=== PATIENT | male | born 1940 | race Caucasian/White ===

== ENCOUNTER 2016-09-29 13:24 | Emergency (ER) | payer OTHER ==
[~2016-09-29] VITALS: Ht 177.8 cm; Wt 67.0 kg
[~2016-09-29 13:24] MED LIST: ATORVASTATIN CA10 MG PO; AZATHIOPRINE50 MG PO; BACTERICIN30 GM TP; BACTRIM,SEPT1 TABLET PO; Bactrim,Septra DS 80 PO; CALCITRIOL0.25 MCG PO; CALCITRIOL0.5 MCG PO; CARTIA XT240 MG PO; CARVEDILOL12.5 MG PO; CEFDINIR300 MG PO; CEFTIN500 MG PO; CENTRUM SILVER1 EAC3 PO; CLEOCIN300 MG PO; CYANOCOBALAM1000 MCG PO; CYCLOPHOSPHAMID50 MG PO; Cardizem CD,Cartia X PO; Cardizem CD,LA,Cartia,Tiazac,Dilacor,Taztia PO; Ceftin PO; Coreg PO; DILTIAZEM 24HR240 MG PO; DOXAZOSIN MESYLA1 MG PO; EFUDEX 5% CREAM25 GM TP; ELIQUIS2.5 MG PO; FEOSOL325 MG PO; FERROUS SULFAT325 MG PO; FLOMAX0.4 MG PO; FUROSEMIDE40 MG PO; GLIPIZIDE5 MG PO; GLUCOPHAGE500 MG PO; GLUCOTROL5 MG PO; Glucotrol PO; HUMALOG100 UNIT/2 SC; IMURAN50 MG PO; IRON SUPPLEMEN325 MG PO; IRON325 M1 PO; KEFLEX500 MG PO; LANTUS 10100 UNITS/ SC; LANTUS 3 M100 UNITS1 SC; LASIX40 MG PO; LEVAQUIN750 MG PO; LOVENOX30 MG/0.3 SC; MULTIVITAMIN1 EAC2 PO; NOVOLOG 10100 UNITS/ SC; NOVOLOG PE100 UNITS/ SC; Norvasc PO; NovoLOG, HumaLOG SC; OMEPRAZOLE40 M1 PO; OS-CAL 500+D T1 EAC1 PO; OS-CAL ULTRA T1 EACH PO; OSCAL, OYSTER500 MG PO; OXYCODONE HCL5 MG PO; Oscal 500 w/Vitamin PO; PANTOPRAZOLE SO40 MG PO; PREDNISONE20 MG PO; PREDNISONE5 MG PO; PROCRIT10000 UNI1 SC; PROCRIT20000 UNI2 SC; PROTONIX40 MG PO; Protonix PO; TAMSULOSIN HCL0.4 MG PO; TRAMADOL HCL50 MG PO; TYLENOL REGULA325 MG PO; Theragran PO; VALSARTAN80 MG PO; VITAMIN B-122000 MC1 PO; VITAMIN B-122000 MCG PO; VITAMIN B12-FO1 EACH PO; ZOFRAN4 MG PO; predniSONE PO
[2016-09-29 14:20] LABS: HEMATOCRIT 31.6 % (38.0-50.0); MCH 31.2 PG (29.0-34.0); MCHC 32.3 G/DL (30.0-36.0); MCV 96.6 FL (86-99); MEAN PLAT.VOLUME 9.7 uM^3 (9.0-12.4); PLATELET COUNT 193 K/uL (156-360); RBC DIS.WIDTH-CV 13.5 % (11.8-14.6); RBC DIS.WIDTH-SD 48.4 % (39-53); RED BLOOD COUNT 3.27 M/uL (4.00-5.50); WHITE BLOOD COUNT 8.3 K/uL (4.1-10.2)
[2016-09-29 14:31] LABS: CHLORIDE 105 mEq/L (99-109); POTASSIUM 4.8 mEq/L (3.7-5.4); SODIUM 143 mEq/L (136-147)
[2016-09-29 14:33] LABS: GLUCOSE 181 mg/dL (70-99)
[2016-09-29 14:34] LABS: ANION GAP 11 MEQ/L (2-14)
[2016-09-29 14:35] LABS: TOTAL BILIRUBIN 0.5 mg/dL (0.0-1.0)
[2016-09-29 14:36] LABS: ALKALINE PHOSPHATASE 58 IU/L (3-129)
[2016-09-29 14:37] LABS: GFR ESTIMATE (CALCULATED) 21 mL/min/
[2016-09-29 14:38] LABS: UREA NITROGEN (BUN) 45 mg/dL (9-23)
[2016-09-29 14:40] LABS: LIPASE 15 U/L (1.0-51.0)
[2016-09-29 14:53] LABS: ADD MIUA? YES; BILIRUBIN NEGATIVE; BLOOD NEGATIVE; COLOR YELLOW ((YELLOW)); GLUCOSE (STRIP) NEGATIVE; KETONES NEGATIVE; LEUKOCYTES TRACE; NITRITE NEGATIVE; PROTEIN (STRIP) 30; SPECIFIC GRAVITY 1.011 (1.000-1.030); UROBILINOGEN 0.2 MG/DL (0.2-1.0)
[2016-09-29 14:57] LABS: BACTERIA NONE SEEN /HPF; EPITHELIAL CELLS RARE /HPF; HYALINE CASTS 0-5 /LPF; MUCUS NONE SEEN /LPF; RED BLOOD CELLS 0-5 /HPF (0-5); UCUL ADDED? NO; WHITE BLOOD CELLS 0-5 /HPF (0-5); WHITE BLOOD CELLS CLUMP RARE /HPF (0-5)
[2016-09-29 15:04] LABS: TROP-I INTERPRETATION NEGATIVE; TROPONIN-I 0.01 ng/mL (0.0-0.30)
[2016-09-29] MEDS ORDERED: ZOFRAN8 MG PO (16:53)
[2016-09-29 17:40] VITALS: BP 152/82
== END 2016-09-29 17:56 | disposition home or self-care (01) ==
LOC: EME 13:24
DX: R11.2 Nausea with vomiting, unspecified (principal); R19.7 Diarrhea, unspecified; M31.31 Wegener's granulomatosis with renal involvement; E11.9 Type 2 diabetes mellitus without complications; E86.0 Dehydration; N28.9 Disorder of kidney and ureter, unspecified; I10 Essential (primary) hypertension; Z79.4 Long term (current) use of insulin; Z79.52 Long term (current) use of systemic steroids; Z79.01 Long term (current) use of anticoagulants; Z87.891 Personal history of nicotine dependence
CPT/HCPCS: 71020; 80053; 81003; 83690; 84484; 85027; 99281; 99285; J7030

== ENCOUNTER 2017-03-11 12:55 | Emergency (ER) | payer OTHER ==
[~2017-03-11] VITALS: Ht 177.8 cm; Wt 67.1 kg
[~2017-03-11 12:55] MED LIST changes: +ZOFRAN8 MG PO
[2017-03-11 13:38] LABS: HEMATOCRIT 31.9 % (38.0-50.0); MCH 31.3 PG (29.0-34.0); MCV 97.9 FL (86-99); MEAN PLAT.VOLUME 9.4 uM^3 (9.0-12.4); PLATELET COUNT 173 K/uL (156-360); RBC DIS.WIDTH-CV 13.3 % (11.8-14.6); RBC DIS.WIDTH-SD 47.6 % (39-53); RED BLOOD COUNT 3.26 M/uL (4.00-5.50); WHITE BLOOD COUNT 11.1 K/uL (4.1-10.2)
[2017-03-11 13:46] LABS: CHLORIDE 111 mEq/L (99-109); POTASSIUM 4.8 mEq/L (3.7-5.4); SODIUM 144 mEq/L (136-147)
[2017-03-11 13:48] LABS: GLUCOSE 146 mg/dL (70-99)
[2017-03-11 13:50] LABS: ANION GAP 11 MEQ/L (2-14)
[2017-03-11 13:52] LABS: GFR ESTIMATE (CALCULATED) 29 mL/min/
[2017-03-11 13:53] LABS: UREA NITROGEN (BUN) 34 mg/dL (9-23)
[2017-03-11 13:57] LABS: TROP-I INTERPRETATION NEGATIVE; TROPONIN-I < 0.01 ng/mL (0.0-0.30)
[2017-03-11 16:42] LABS: ADD MIUA? NO; BILIRUBIN NEGATIVE; BLOOD NEGATIVE; COLOR YELLOW ((YELLOW)); GLUCOSE (STRIP) NEGATIVE; KETONES NEGATIVE; LEUKOCYTES NEGATIVE; NITRITE NEGATIVE; PROTEIN (STRIP) NEGATIVE; SPECIFIC GRAVITY 1.008 (1.000-1.030); UCUL ADDED? NO; UROBILINOGEN 0.2 MG/DL (0.2-1.0)
[2017-03-11] MEDS ORDERED: LEVAQUIN750 MG PO (18:34)
[2017-03-11 18:47] VITALS: BP 138/79
== END 2017-03-11 19:00 | disposition home or self-care (01) ==
LOC: EME 12:55
PROVIDERS: Emergency Medicine
DX: J18.9 Pneumonia, unspecified organism (principal); R07.9 Chest pain, unspecified; M31.30 Wegener's granulomatosis without renal involvement; I12.9 Hypertensive chronic kidney disease with stage 1 through stage 4 chronic kidney disease, or unspecified chronic kidney disease; E11.22 Type 2 diabetes mellitus with diabetic chronic kidney disease; N18.9 Chronic kidney disease, unspecified; Z79.4 Long term (current) use of insulin; J45.909 Unspecified asthma, uncomplicated; K21.9 Gastro-esophageal reflux disease without esophagitis; F41.9 Anxiety disorder, unspecified; Z86.73 Personal history of transient ischemic attack (TIA), and cerebral infarction without residual deficits; N40.0 Benign prostatic hyperplasia without lower urinary tract symptoms; Z85.9 Personal history of malignant neoplasm, unspecified; Z88.8 Allergy status to other drugs, medicaments and biological substances; Z87.891 Personal history of nicotine dependence
CPT/HCPCS: 71020; 80048; 81003; 84484; 85027; 93005; 99281; 99285; J7030

== ENCOUNTER 2017-09-03 07:08 | Inpatient (IN) | payer OTHER ==
[~2017-09-03] VITALS: Ht 177.8 cm; Wt 67.0 kg
[2017-09-03 08:13] LABS: BASOPHIL (%) 0.2 % (0-1); EOSINOPHIL (%) 0.6 % (0-5); EOSINOPHIL COUNT 0.1 K/uL (0-0.3); HEMATOCRIT 32.4 % (38.0-50.0); HEMOGLOBIN 10.7 G/DL (12.5-16.6); IMMATURE GRANULOCYTE (%) 0.3 % (0.0-0.7); LYMPHOCYTE (%) 5.4 % (15-42); LYMPHOCYTE COUNT 0.5 K/uL (1.0-2.8); MCH 31.7 PG (29.0-34.0); MCV 95.9 FL (86-99); MONOCYTE COUNT 0.3 K/uL (0-0.8); NEUTROPHIL (%) 90.5 % (45-76); NEUTROPHIL COUNT 8.8 K/uL (1.8-6.4); PLATELET COUNT 178 K/uL (156-360); RBC DIS.WIDTH-CV 13.4 % (11.8-14.6); RBC DIS.WIDTH-SD 47.2 % (39-53); RED BLOOD COUNT 3.38 M/uL (4.00-5.50); WHITE BLOOD COUNT 9.7 K/uL (4.1-10.2)
[2017-09-03 08:58] LABS: ALBUMIN 3.2 G/DL (3.2-4.8); ALKALINE PHOSPHATASE 54 IU/L (3-129); ALT (GPT) 25 IU/L (3-49); AST (GOT) 22 IU/L (2-34); CHLORIDE 111 MEQ/L (99-109); CREATININE 2.6 MG/DL (0.6-1.3); GFR ESTIMATE (CALCULATED) 25 mL/min/ (58.99-99999); GLUCOSE 139 mg/dL (70-99); POTASSIUM 4.4 MEQ/L (3.7-5.4); SODIUM 143 MEQ/L (136-147); TOTAL BILIRUBIN 0.5 MG/DL (0.0-1.0); TOTAL PROTEIN 5.3 G/DL (6.4-8.3); UREA NITROGEN (BUN) 60 mg/dL (9-23)
[2017-09-03 11:34] LABS: APPEARANCE SL.HAZY ((CLEAR)); BILIRUBIN NEGATIVE; BLOOD NEGATIVE; COLOR YELLOW ((YELLOW)); GLUCOSE (STRIP) NEGATIVE; KETONES NEGATIVE; LEUKOCYTES NEGATIVE; NITRITE NEGATIVE; PROTEIN (STRIP) NEGATIVE; SPECIFIC GRAVITY 1.011 (1.000-1.030); UROBILINOGEN 0.2 MG/DL (0.2-1.0)
[2017-09-03 11:38] LABS: BACTERIA NONE SEEN /HPF; EPITHELIAL CELLS NONE SEEN /HPF; MUCUS TRACE /LPF; RED BLOOD CELLS 0-5 /HPF (0-5); WHITE BLOOD CELLS 0-5 /HPF (0-5)
[2017-09-03] MEDS ORDERED: CARDIZEM CD360 MG PO (11:51)
[2017-09-03] MEDS ORDERED: ANORO ELLIPTA1 EACH IH (11:54)
[2017-09-03] MEDS ORDERED: TRESIBA FL100 UNIT/1 SC (11:54)
[2017-09-03] MEDS ORDERED: PROAIR HFA8.5 GM IH (11:55)
[2017-09-03] MEDS ORDERED: VALSARTAN80 MG PO (11:57)
[2017-09-03 12:30] VITALS: BP 107/53
[2017-09-03 16:02] VITALS: BP 122/56
[2017-09-03 19:30] VITALS: BP 106/52
[2017-09-03 23:54] VITALS: BP 107/56
[2017-09-04] VITALS (7 sets, daily range): BP systolic 98–179; BP diastolic 50–79
[2017-09-04 06:20] LABS: BASOPHIL (%) 0.3 % (0-1); EOSINOPHIL (%) 1.5 % (0-5); EOSINOPHIL COUNT 0.2 K/uL (0-0.3); HEMATOCRIT 27.6 % (38.0-50.0); HEMOGLOBIN 8.8 G/DL (12.5-16.6); IMMATURE GRANULOCYTE (%) 0.5 % (0.0-0.7); LYMPHOCYTE (%) 11.3 % (15-42); LYMPHOCYTE COUNT 1.1 K/uL (1.0-2.8); MCHC 31.9 G/DL (30.0-36.0); MCV 97.2 FL (86-99); MONOCYTE (%) 4.3 % (3-12); MONOCYTE COUNT 0.4 K/uL (0-0.8); NEUTROPHIL (%) 82.1 % (45-76); NEUTROPHIL COUNT 8.3 K/uL (1.8-6.4); PLATELET COUNT 146 K/uL (156-360); RBC DIS.WIDTH-CV 13.8 % (11.8-14.6); RBC DIS.WIDTH-SD 49.7 % (39-53); RED BLOOD COUNT 2.84 M/uL (4.00-5.50); WHITE BLOOD COUNT 10.1 K/uL (4.1-10.2)
[2017-09-04 06:54] LABS: CHLORIDE 111 MEQ/L (99-109); CREATININE 2.9 MG/DL (0.6-1.3); GFR ESTIMATE (CALCULATED) 22 mL/min/ (58.99-99999); GLUCOSE 75 mg/dL (70-99); POTASSIUM 4.8 MEQ/L (3.7-5.4); SODIUM 142 MEQ/L (136-147); UREA NITROGEN (BUN) 56 mg/dL (9-23)
[2017-09-05 03:44] VITALS: BP 107/65
[2017-09-05 06:39] LABS: HEMATOCRIT 28.6 % (38.0-50.0); HEMOGLOBIN 9.1 G/DL (12.5-16.6); MCH 31.1 PG (29.0-34.0); MCHC 31.8 G/DL (30.0-36.0); MCV 97.6 FL (86-99); PLATELET COUNT 147 K/uL (156-360); RBC DIS.WIDTH-CV 13.7 % (11.8-14.6); RBC DIS.WIDTH-SD 49.2 % (39-53); RED BLOOD COUNT 2.93 M/uL (4.00-5.50); WHITE BLOOD COUNT 7.4 K/uL (4.1-10.2)
[2017-09-05 07:01] LABS: CHLORIDE 111 MEQ/L (99-109); CREATININE 3.3 MG/DL (0.6-1.3); GFR ESTIMATE (CALCULATED) 19 mL/min/ (58.99-99999); GLUCOSE 78 mg/dL (70-99); POTASSIUM 4.4 MEQ/L (3.7-5.4); SODIUM 144 MEQ/L (136-147); UREA NITROGEN (BUN) 56 mg/dL (9-23)
[2017-09-05 07:32] VITALS: BP 114/58
[2017-09-05 11:30] VITALS: BP 120/68
[2017-09-05 16:01] VITALS: BP 110/62
[2017-09-05 19:20] VITALS: BP 123/89
[2017-09-05 23:10] VITALS: BP 120/66
[2017-09-06 03:38] VITALS: BP 123/64
[2017-09-06 06:42] LABS: BASOPHIL (%) 0.4 % (0-1); EOSINOPHIL COUNT 0.2 K/uL (0-0.3); HEMATOCRIT 25.6 % (38.0-50.0); HEMOGLOBIN 8.4 G/DL (12.5-16.6); IMMATURE GRANULOCYTE (%) 0.4 % (0.0-0.7); LYMPHOCYTE (%) 12.6 % (15-42); LYMPHOCYTE COUNT 0.8 K/uL (1.0-2.8); MCH 31.1 PG (29.0-34.0); MCHC 32.8 G/DL (30.0-36.0); MCV 94.8 FL (86-99); MONOCYTE (%) 6.1 % (3-12); MONOCYTE COUNT 0.4 K/uL (0-0.8); NEUTROPHIL (%) 77.5 % (45-76); NEUTROPHIL COUNT 5.2 K/uL (1.8-6.4); PLATELET COUNT 140 K/uL (156-360); RBC DIS.WIDTH-CV 13.5 % (11.8-14.6); RBC DIS.WIDTH-SD 46.6 % (39-53); WHITE BLOOD COUNT 6.7 K/uL (4.1-10.2)
[2017-09-06 07:11] LABS: CHLORIDE 112 MEQ/L (99-109); GFR ESTIMATE (CALCULATED) 25 mL/min/ (58.99-99999); GLUCOSE 67 mg/dL (70-99); POTASSIUM 4.6 MEQ/L (3.7-5.4); SODIUM 142 MEQ/L (136-147); UREA NITROGEN (BUN) 43 mg/dL (9-23)
[2017-09-06 07:12] LABS: CREATININE 2.6 MG/DL (0.6-1.3)
[2017-09-06 07:41] VITALS: BP 136/65
[2017-09-06 11:23] VITALS: BP 141/68
[2017-09-06 15:27] VITALS: BP 127/68
[2017-09-06 19:52] VITALS: BP 143/71
[2017-09-07 00:18] VITALS: BP 139/74
[2017-09-07 04:00] VITALS: BP 127/68
[2017-09-07 05:59] LABS: BASOPHIL (%) 0.2 % (0-1); EOSINOPHIL (%) 0.2 % (0-5); HEMATOCRIT 26.9 % (38.0-50.0); HEMOGLOBIN 8.7 G/DL (12.5-16.6); IMMATURE GRANULOCYTE (%) 0.6 % (0.0-0.7); LYMPHOCYTE (%) 7.7 % (15-42); LYMPHOCYTE COUNT 0.4 K/uL (1.0-2.8); MCH 31.1 PG (29.0-34.0); MCHC 32.3 G/DL (30.0-36.0); MCV 96.1 FL (86-99); MONOCYTE COUNT 0.1 K/uL (0-0.8); NEUTROPHIL (%) 88.3 % (45-76); NEUTROPHIL COUNT 4.2 K/uL (1.8-6.4); PLATELET COUNT 152 K/uL (156-360); RBC DIS.WIDTH-CV 13.2 % (11.8-14.6); RBC DIS.WIDTH-SD 46.6 % (39-53); WHITE BLOOD COUNT 4.7 K/uL (4.1-10.2)
[2017-09-07 06:24] LABS: CHLORIDE 113 MEQ/L (99-109); CREATININE 2.5 MG/DL (0.6-1.3); GFR ESTIMATE (CALCULATED) 27 mL/min/ (58.99-99999); SODIUM 141 MEQ/L (136-147); UREA NITROGEN (BUN) 39 mg/dL (9-23)
[2017-09-07 06:27] LABS: GLUCOSE 143 mg/dL (70-99); POTASSIUM 5.6 MEQ/L (3.7-5.4)
[2017-09-07 07:52] VITALS: BP 165/73
[2017-09-07 11:25] VITALS: BP 172/85
[2017-09-07] MEDS ORDERED: LEVAQUIN500 MG PO (15:21)
[2017-09-07 16:29] VITALS: BP 142/69
== END 2017-09-07 19:00 | disposition home or self-care (01) | DRG 871 ==
LOC: EME 07:08 → 3EAST 10:14 → EDOF 10:14 → ENRESERV 10:16 → 3EAST 11:52
PROVIDERS: Emergency Medicine; Hospitalist; Internal Medicine; Internal Medicine Nephrology
DX: A41.9 Sepsis, unspecified organism (principal); J44.0 Chronic obstructive pulmonary disease with (acute) lower respiratory infection; J18.9 Pneumonia, unspecified organism; N17.9 Acute kidney failure, unspecified; E83.51 Hypocalcemia; E86.0 Dehydration; E87.2 Acidosis; E87.5 Hyperkalemia; I12.9 Hypertensive chronic kidney disease with stage 1 through stage 4 chronic kidney disease, or unspecified chronic kidney disease; E11.22 Type 2 diabetes mellitus with diabetic chronic kidney disease; N18.3 Chronic kidney disease, stage 3 (moderate); D64.9 Anemia, unspecified; D69.6 Thrombocytopenia, unspecified; I48.2 Chronic atrial fibrillation; J84.10 Pulmonary fibrosis, unspecified; K21.9 Gastro-esophageal reflux disease without esophagitis; F41.9 Anxiety disorder, unspecified; M31.31 Wegener's granulomatosis with renal involvement; N40.0 Benign prostatic hyperplasia without lower urinary tract symptoms; Z66 Do not resuscitate; Z96.659 Presence of unspecified artificial knee joint; Z79.01 Long term (current) use of anticoagulants; Z79.4 Long term (current) use of insulin; Z86.73 Personal history of transient ischemic attack (TIA), and cerebral infarction without residual deficits; Z95.0 Presence of cardiac pacemaker; Z87.891 Personal history of nicotine dependence; Z79.52 Long term (current) use of systemic steroids
CPT/HCPCS: 71045; 71046; 71250; 80048; 80053; 81003; 82784; 82948; 83605; 84132 91; 85025; 85027; 87040; 87070; 87205; 87449; 87493; 87641; 87801; 94640; 94640 76; 94667; 94668; 94799; 99202; 99281; 99284; J0456; J0696; J1815; J2405; J2543; J7030; J7050; J7500; J7512

== ENCOUNTER → 2017-10-16 | Outpatient (CLI) | payer OTHER ==
[~2017-10-16] MED LIST changes: +ANORO ELLIPTA1 EACH IH; +CARDIZEM CD360 MG PO; +CITRACAL + D C1 EACH PO; +LEVAQUIN500 MG PO; +PROAIR HFA8.5 GM IH; +TRESIBA FL100 UNIT/1 SC; +VORICONAZOLE200 MG PO
[2017-10-16 09:01] LABS: HEMATOCRIT 29.9 % (38.0-50.0); HEMOGLOBIN 9.7 G/DL (12.5-16.6); MCHC 32.4 G/DL (30.0-36.0); MCV 95.5 FL (86-99); PLATELET COUNT 191 K/uL (156-360); RBC DIS.WIDTH-CV 13.4 % (11.8-14.6); RBC DIS.WIDTH-SD 47.2 % (39-53); RED BLOOD COUNT 3.13 M/uL (4.00-5.50); WHITE BLOOD COUNT 6.8 K/uL (4.1-10.2)
== END | disposition home or self-care (01) ==
LOC: OPR 07:29 → EDSTATUS 08:00
PROVIDERS: Internal Medicine
PROC: 0BBL3ZX Excision of Left Lung, Percutaneous Approach, Diagnostic (ICD-10-PCS; principal; 2017-10-16)
DX: B44.1 Other pulmonary aspergillosis (principal); J85.2 Abscess of lung without pneumonia; Z87.891 Personal history of nicotine dependence; Z87.01 Personal history of pneumonia (recurrent); A50.02 Early congenital syphilitic osteochondropathy; I12.9 Hypertensive chronic kidney disease with stage 1 through stage 4 chronic kidney disease, or unspecified chronic kidney disease; N18.4 Chronic kidney disease, stage 4 (severe); E10.22 Type 1 diabetes mellitus with diabetic chronic kidney disease; E78.1 Pure hyperglyceridemia; D50.9 Iron deficiency anemia, unspecified; E55.9 Vitamin D deficiency, unspecified; Z90.49 Acquired absence of other specified parts of digestive tract; Z80.9 Family history of malignant neoplasm, unspecified; Z82.49 Family history of ischemic heart disease and other diseases of the circulatory system; Z82.3 Family history of stroke; Z83.3 Family history of diabetes mellitus
CPT/HCPCS: 71045; 77012; 82948; 85027; 87070; 87075; 87076; 87077; 87102; 87116; 87205; 87206; J3010